=== PATIENT | female | born 1950 | race Caucasian/White ===

== ENCOUNTER → 2016-03-15 | Outpatient (CLI) | payer MEDICARE, OTHER ==
[~2016-03-15] MED LIST: ASPIRIN E.C. 8181 MG PO; BENICAR 20MG TA20 MG PO; BONIVA150 MG PO; CALCIUM 600 + V1 TAB PO; CRESTOR5 MG PO; FENTANYL 12MCG TD; GLUCOSAMINE & C1 CAP PO; INSULIN PUMP; LIPITOR 10MG10 MG PO; LOTENSIN40 MG PO; LOVENOX 4040 MG/0.4 SQ; MULTIVITAMIN FO1 CAP PO; NORCO 325 MG-51 TAB PO; SYNTHROID0.1 MG PO; SYNTHROID0.1 MG/TAB PO; ULTRAM 50MG TAB50 MG PO
== END ==
LOC: MC.RAD 09:00
DX: Z12.31 Encounter for screening mammogram for malignant neoplasm of breast (principal)

== ENCOUNTER → 2017-03-22 | Outpatient (CLI) | payer MEDICARE, OTHER | LOC: MC.RAD 09:58 | DX: Z12.31 Encounter for screening mammogram for malignant neoplasm of breast (principal); Z98.890 Other specified postprocedural states ==

== ENCOUNTER → 2018-04-02 | Outpatient (CLI) | payer MEDICARE, OTHER | LOC: MC.RAD 13:14 | DX: Z12.31 Encounter for screening mammogram for malignant neoplasm of breast (principal) ==

== ENCOUNTER 2021-04-11 07:42 | Day surgery (SDC) | payer MEDICARE, OTHER ==
[~2021-04-11] VITALS: Ht 177.8 cm; Wt 73.5 kg
--- NOTE | 2021-04-11 08:50 | NUR ---
Blood sugar: 49. Orders recived from ARIELLE GOMEZ for 1 amp of 50% Dextrose push.
[2021-04-11 09:07] VITALS: BP 172/80; PULSE 72; TEMP 97.7
--- NOTE | 2021-04-11 09:15 | NUR ---
Patient checked her insulin pump and states it reads her blood sugar as 162.
[2021-04-11 10:10] VITALS: BP 130/75; PULSE 67
--- NOTE | 2021-04-11 10:10 | NUR ---
Patient returns to [facility] [address] per cart and transfers from cart to recliner and is awake and alert. Gait steady. IV fluids infusing and site is free of redness. Call light in reach. Patient is drinking coffee and eating muffin.
[2021-04-11 10:25] VITALS: BP 130/70; PULSE 68
--- NOTE | 2021-04-11 10:25 | NUR ---
Patient checks glucose and level is 121.
[2021-04-11 10:40] VITALS: BP 122/69; PULSE 69
--- NOTE | 2021-04-11 10:40 | NUR ---
Dr. Bonilla in the room and all questions answered.
--- NOTE | 2021-04-11 10:43 | NUR ---
IV discontinued and site is free of redness. Given dismissal instructions and voices understanding of these. Patient dresses self.
--- NOTE | 2021-04-11 10:55 | NUR ---
Patient dismissed to home driven by friend and taken to the vehicle per wheelchair and assisted into car and dismissal instructions in hand.
== END 2021-04-11 10:55 | disposition home or self-care (01) ==
LOC: SDCO 07:42
DX: Z12.11 Encounter for screening for malignant neoplasm of colon (principal); D12.0 Benign neoplasm of cecum; K64.0 First degree hemorrhoids
CPT/HCPCS: J2704; J7120

== ENCOUNTER → 2022-12-12 | Outpatient (CLI) | payer MEDICARE | LOC: MC.RAD 13:54 | DX: R92.8 Other abnormal and inconclusive findings on diagnostic imaging of breast (principal) ==